=== PATIENT | female | born 1950 | race Caucasian/White ===

== ENCOUNTER → 2016-07-01 | Outpatient (CLI) | payer MEDICARE ==
[2016-07-01 08:45] LABS: ALBUMIN 3.3 g/dL (3.4-5.0); GFR 24.9; MAGNESIUM 1.6 mg/dL (1.8-2.4); PHOSPHORUS 4.1 mg/dL (2.6-4.7); POTASSIUM 3.9 mmol/L (3.5-5.1)
[2016-07-01 08:46] LABS: BILIRUBIN,URINE NEG (NEG); CLARITY,URINE CLEAR; COLOR,URINE YELLOW; GLUCOSE,URINE NEG (NEG)
[2016-07-01 08:47] LABS: BACTERIA,URINE 0 /HPF (0-FEW); NITRITE,URINE NEG (NEG); SQUAMOUS EPITHELIAL CELL,UR OCC /LPF; UROBILINOGEN,URINE 0.2 mg/dL (0.2 mg/dL)
[2016-07-01 18:12] LABS: CREAT RD UR 65.3 mg/dL (Not Estab.); MICRO CREAT RATIO 903.2 mg/g creat (0.0-30.0); MICROALB RD UR 589.8 ug/mL (Not Estab.); PROTEIN RANDOM URINE 73.8 mg/dL (Not Estab.)
[2016-07-02 01:11] LABS: CALCIUM PTH 9.3 mg/dL (8.7-10.3); PHOSPHORUS PTH 4.1 mg/dL (2.5-4.5); PTH INTACT 59 pg/mL (15-65); eGFR IF AFRICAN AMERICAN 33 (>59); eGFR IF NONAFRICAN AMERICAN 29 (>59)
== END | disposition home or self-care (01) ==
LOC: LAB 07:46
PROVIDERS: ATTEND Internal Medicine Nephrology
DX: I12.9 Hypertensive chronic kidney disease with stage 1 through stage 4 chronic kidney disease, or unspecified chronic kidney disease (principal); N18.3 Chronic kidney disease, stage 3 (moderate); M31.7 Microscopic polyangiitis; R80.9 Proteinuria, unspecified; R31.9 Hematuria, unspecified; E83.42 Hypomagnesemia; Z68.41 Body mass index [BMI] 40.0-44.9, adult
CPT/HCPCS: 36415; 80069; 81001; 82043; 82570; 83735; 83970; 84156; 87086

== ENCOUNTER → 2016-07-11 | Outpatient (CLI) | payer MEDICARE ==
[2016-07-11 08:32] LABS: CALCIUM 8.1 mg/dL (8.5-10.1); CREATININE 1.8 mg/dL (0.6-1.0)
[2016-07-11 08:34] LABS: GFR 28.2
== END | disposition home or self-care (01) ==
LOC: LAB 07:34
PROVIDERS: ATTEND Internal Medicine Nephrology
DX: N18.3 Chronic kidney disease, stage 3 (moderate) (principal)
CPT/HCPCS: 36415; 80048

== ENCOUNTER → 2016-07-21 | Outpatient (CLI) | payer MEDICARE ==
--- NOTE | 2016-07-21 09:37 | RAD ---
CT of the paranasal sinuses without contrast, 07/21/2016: History: Cough and congestion Noncontrast scans were obtained with multiplanar reconstructions produced. The left maxillary sinus contains a moderate amount of fluid with underlying mucosal thickening. The ethmoid infundibulum of the left ostiomeatal complex is obstructed. There is moderate mucosal thickening in the left ethmoid and sphenoid sinuses. The left frontal sinus is underdeveloped. There is a small amount of fluid in the right maxillary sinus with mild right maxillary mucosal thickening. The ethmoid infundibulum of the ostiomeatal complex on the right is patent. There is mild mucosal thickening in the right ethmoid sinus. The right frontal sinus is clear. There is slight mucosal thickening inferiorly in the right sphenoid sinus. No bony abnormality is detected. The orbital contents are unremarkable. IMPRESSION: Paranasal sinusitis as described above, left greater than right. PQRS Compliance Statement: One or more of the following individualized dose reduction techniques were utilized for this examination: 1. Automated exposure control 2. Adjustment of the mA and/or kV according to patient size 3. Use of iterative reconstruction technique
--- NOTE | 2016-07-21 11:03 | RAD ---
CT of the neck without contrast, 07/21/2016: History: Congestion and cough Noncontrast scans were obtained as requested. The laryngeal region and visualized portions of the trachea are unremarkable. The thyroid gland is small and poorly delineated. The parotid and submandibular glands are unremarkable. No cervical adenopathy is seen. Bilateral paranasal sinusitis is evident as fully described on the current CT sinus exam. There are moderate scattered degenerative changes in the cervical spine. There is a slight spondylolisthesis at C3-4 due to facet joint arthropathy. 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 IMPRESSION: 1. Bilateral paranasal sinusitis. 2. Moderate multilevel degenerative change in the cervical spine. PQRS Compliance Statement: One or more of the following individualized dose reduction techniques were utilized for this examination: 1. Automated exposure control 2. Adjustment of the mA and/or kV according to patient size 3. Use of iterative reconstruction technique
== END | disposition home or self-care (01) ==
LOC: CT 07:59
PROVIDERS: ATTEND Internal Medicine Nephrology
DX: J32.8 Other chronic sinusitis (principal); M47.892 Other spondylosis, cervical region
CPT/HCPCS: 70486; 70490

== ENCOUNTER → 2016-08-27 | Outpatient (CLI) | payer MEDICARE ==
[2016-08-27 10:44] LABS: ALBUMIN 3.4 g/dL (3.4-5.0); CALCIUM 8.8 mg/dL (8.5-10.1); CREATININE 2.2 mg/dL (0.6-1.0); GFR 22.3; MAGNESIUM 1.9 mg/dL (1.8-2.4); PHOSPHORUS 3.8 mg/dL (2.6-4.7); POTASSIUM 4.5 mmol/L (3.5-5.1)
[2016-08-27 10:46] LABS: BACTERIA,URINE 0 /HPF (0-FEW); BILIRUBIN,URINE NEG (NEG); CLARITY,URINE CLEAR; COLOR,URINE YELLOW; GLUCOSE,URINE NEG (NEG); NITRITE,URINE NEG (NEG); UROBILINOGEN,URINE 0.2 mg/dL (0.2 mg/dL); WBC,URINE RARE /HPF (0-4)
[2016-08-27 10:47] LABS: AMORPHOUS SEDIMENT,UR PRESENT /HPF; SQUAMOUS EPITHELIAL CELL,UR FEW /LPF
[2016-08-27 22:06] LABS: CALCIUM PTH 9.3 mg/dL (8.7-10.3); CREAT RD UR 40.8 mg/dL (Not Estab.); CREATININE PTH 2.13 mg/dL (0.57-1.00); MICRO CREAT RATIO 534.8 mg/g creat (0.0-30.0); MICROALB RD UR 218.2 ug/mL (Not Estab.); PROTEIN RANDOM URINE 29.2 mg/dL (Not Estab.); PTH INTACT 39 pg/mL (15-65)
== END | disposition home or self-care (01) ==
LOC: LAB 09:58
PROVIDERS: ATTEND Internal Medicine Nephrology
DX: I12.9 Hypertensive chronic kidney disease with stage 1 through stage 4 chronic kidney disease, or unspecified chronic kidney disease (principal); J32.9 Chronic sinusitis, unspecified; N18.3 Chronic kidney disease, stage 3 (moderate); N17.9 Acute kidney failure, unspecified; M31.7 Microscopic polyangiitis; D64.9 Anemia, unspecified; R80.9 Proteinuria, unspecified; Z68.38 Body mass index [BMI] 38.0-38.9, adult; Z92.25 Personal history of immunosuppression therapy
CPT/HCPCS: 36415; 80069; 81001; 82043; 82570; 83735; 83970; 84156; 87086

== ENCOUNTER → 2016-08-31 | Outpatient (CLI) | payer MEDICARE ==
[2016-08-31 09:19] LABS: BILIRUBIN,URINE NEG (NEG); CLARITY,URINE HAZY; COLOR,URINE STRAW; GLUCOSE,URINE NEG (NEG); NITRITE,URINE NEG (NEG); UROBILINOGEN,URINE 0.2 mg/dL (0.2 mg/dL)
[2016-08-31 09:20] LABS: BACTERIA,URINE 0 /HPF (0-FEW); SQUAMOUS EPITHELIAL CELL,UR OCC /LPF; WBC,URINE 0 /HPF (0-4)
== END | disposition home or self-care (01) ==
LOC: LAB 07:34
PROVIDERS: ATTEND Internal Medicine Nephrology
DX: N18.9 Chronic kidney disease, unspecified (principal); N05.7 Unspecified nephritic syndrome with diffuse crescentic glomerulonephritis; R80.9 Proteinuria, unspecified; R31.9 Hematuria, unspecified
CPT/HCPCS: 81001